=== PATIENT | male | born 1945 | race Caucasian/White ===

== ENCOUNTER 2018-07-18 15:45 | Outpatient (CLI) | payer MEDICARE ==
--- NOTE | 2018-07-18 18:33 | RAD ---
CERVICAL SPINE 4 VIEWS: Date: 07/18/18 HISTORY: Cervical disc disease. COMPARISON: None. FINDINGS: On the open-mouth projection, lateral masses of C1 and C2 articulate appropriate. Intact odontoid pro cess. On the AP projection, there is evidence of facet hypertrophy. There is severe loss of disc space height and osteophyte formation at C4-C5, C5-C6, and C6-C7. Slight reversal of cervical lordosis at C4-C5. The cervicothoracic junction is unremarkable on the swimmer's view. IMPRESSION: Extensive degenerative changes of the cervical spine. MRI may be beneficial. POS: [facility]
== END 2018-07-18 15:46 | disposition home or self-care (01) ==
LOC: BICRAD 15:45
PROVIDERS: ATTEND Family Medicine
DX: M50.90 Cervical disc disorder, unspecified, unspecified cervical region (principal); M47.892 Other spondylosis, cervical region
CPT/HCPCS: 72040

== ENCOUNTER 2018-08-30 14:12 | Outpatient (CLI) | payer MEDICARE ==
--- NOTE | 2018-08-30 15:38 | ULT ---
BLADDER ULTRASOUND: 08/16 03/02 INDICATION: History of urinary frequency. FINDINGS: The prevoid bladder volume of 344.5 mL. Postvoid bladder volume 113.11 mL. No definite ureter jets are demonstrated. The prostate gland is enlarged measuring 5.5 x 4.6 x 4.6 cm. IMPRESSION: 1. Prostate enlargement. 2. Moderate postvoid residual. POS: [facility]
== END 2018-08-30 14:13 | disposition home or self-care (01) ==
LOC: BICULT 14:12
PROVIDERS: ATTEND Family Medicine
DX: N40.1 Benign prostatic hyperplasia with lower urinary tract symptoms (principal); R35.0 Frequency of micturition
CPT/HCPCS: 76856

== ENCOUNTER 2018-12-12 14:28 | Outpatient (CLI) | payer MEDICARE ==
--- NOTE | 2018-12-12 16:51 | MRI ---
MRI RIGHT KNEE PERFORMED WITHOUT CONTRAST ENHANCEMENT: Date: 12/12/18 HISTORY: Right knee pain for last 2 months, limited range of motion. FINDINGS: ACL shows some mild increased signal change, suggesting some degeneration, but no tear identified. Po sterior cruciate ligament is intact. The lateral meniscus shows a radial tear involving posterior horn near the posterior horn body juncti on region. This tear extends from the free edge to the junction of the peripheral and middle thirds o f the meniscus. The tear then proceeds as more of an undersurface tear involving the body of the meni scus. On the medial side, there is a nondisplaced undersurface flap tear involving the body of the meniscus . The free edge of the meniscus is also somewhat blunted, which is probably related to more chronic c hange. The medial and lateral collateral ligaments and iliotibial band regions are normal in appearance. The patellar articular cartilage shows fairly severe articular cartilage loss with some Grade IV rebekah dromalacia changes of the lateral facet. Medial and lateral patellar retinaculum are normal. Quadrice ps and patellar tendons are unremarkable. The posterior articular surface of the lateral femoral condyle shows some edema change, which is near the large radial tear of the posterior horn and at and slightly posterior to this level are some Gra de IV chondromalacia changes or a 4-5 mm segment with complete loss of articular cartilage in this ar ea. Also of incidental note are some cystic changes of the fibular head. IMPRESSION: 1. Large radial tear of the posterior horn of the lateral meniscus. This continues anteriorly as an undersurface tear involving the body, even appears to extend somewhat into the anterior horn. 2. Nondisplaced undersurface flap tear of the junction of the posterior horn and body of the medial meniscus. There is also a truncated appearance to the free edge of the body of the meniscus noted. 3. Tricompartment arthritic change. POS: [facility]
== END 2018-12-12 14:29 | disposition home or self-care (01) ==
LOC: BICMRI 14:28
PROVIDERS: ATTEND Pediatrics Sports Medicine
DX: M25.561 Pain in right knee (principal); M25.461 Effusion, right knee; S83.281A Other tear of lateral meniscus, current injury, right knee, initial encounter; S83.241A Other tear of medial meniscus, current injury, right knee, initial encounter; M17.11 Unilateral primary osteoarthritis, right knee; Z98.890 Other specified postprocedural states

== ENCOUNTER 2023-08-01 11:40 | Observation (INO) | payer MEDICARE ==
[2023-08-01 13:09] LABS: #Basophils 0.1 thou/uL (0.0-0.2); #Eosinphils 0.1 thou/uL (0.0-0.7); #Monocytes 0.7 thou/uL (0.11-0.59); #Neutrophils 6.2 thou/uL (1.40-6.50); %Basophils 0.7 % (0.0-1.0); %Eosinophils 0.7 % (0.0-10.0); %Lymphocytes 18.8 % (21.0-51.0); %Monocytes 7.9 % (0.0-10.0); Hematocrit 39.8 % (42.0-52.0); Hemoglobin 13.4 g/dL (14.0-18.0); Mean Corpuscular HGB CONC 33.7 g/dL (32.0-36.0); Mean Corpuscular Hemoglobin 29.8 pg (27.0-31.0); Mean Corpuscular Volume 88.4 fl (78.0-98.0); Mean Platelet Volume 9.6 fL (7.4-10.4); Platelet Count 350 10x3/uL (130-400); RBC Distribution Width 13.4 % (11.5-14.5); White Blood Cell (WBC) Count 8.8 10x3/uL (4.8-10.8)
[2023-08-01 13:24] LABS: SARS-CoV-2 NAA Rapid Test Not Detected (NotDetected)
[2023-08-01 13:33] LABS: ALT (SGPT) 22 U/L (8-55); AST (SGOT) 21 U/L (5-34); Albumin 4.5 g/dL (3.4-4.8); Alkaline Phosphatase 46 U/L (40-110); Anion Gap 12 mmol/L (10-20); BUN (Urea Nitrogen) 12 mg/dL (8.4-25.7); Bilirubin, Total 0.7 mg/dL (0.2-1.2); Calc. Creatinine Clearance 0 mL/min (70-130); Calcium 9.3 mg/dL (7.8-10.44); Carbon Dioxide 27 mmol/L (23-31); Chloride 101 mmol/L (98-107); Estimated GFR 89; Globulin 2.7 g/dL (2.4-3.5); Glucose 99 mg/dL (83-110); Potassium 3.1 mmol/L (3.5-5.1); Protein, Total 7.2 g/dL (5.8-8.1); Sodium 137 mmol/L (136-145)
[2023-08-01 13:36] LABS: Troponin I Less than 0.010 ng/mL (< 0.028)
[2023-08-01] MEDS ORDERED: Aspirin Chewable 81 MG TAB ONE (15:03)
[2023-08-01] MEDS ORDERED: Nitroglycerin 0.4 MG TAB (25 Tab Bottle) SL PRN (16:24)
[2023-08-01] MEDS ORDERED: Senokot S 8.6-50 MG TAB PO PRN (16:24)
[2023-08-01] MEDS ORDERED: Acetaminophen 650 MG Suppository PR PRN (16:24)
[2023-08-01] MEDS ORDERED: Acetaminophen 325 MG TAB PO PRN (16:24)
[2023-08-01] MEDS ORDERED: Electrolyte Replacement Protocol FS SCH (16:30)
[2023-08-01 16:35] VITALS: BMI 34.7
[2023-08-01] MEDS ORDERED: Potassium Chloride 20 MEQ TAB PO SCH (16:45)
[2023-08-01 16:57] LABS: Troponin I Less than 0.010 ng/mL (< 0.028)
[2023-08-01 19:57] LABS: Troponin I Less than 0.010 ng/mL (< 0.028)
[2023-08-01 20:05] LABS: Magnesium 2.3 mg/dL (1.6-2.6)
[2023-08-01] MEDS: Amoxicillin/Potassium Clav 875 MG TAB PO SCH (23:53)
[2023-08-02 03:57] LABS: #Eosinphils 0.2 thou/uL (0.0-0.7); #Monocytes 0.9 thou/uL (0.11-0.59); #Neutrophils 6.7 thou/uL (1.40-6.50); %Basophils 0.4 % (0.0-1.0); %Eosinophils 1.8 % (0.0-10.0); %Lymphocytes 21.3 % (21.0-51.0); %Monocytes 9.1 % (0.0-10.0); %Neutrophils 66.5 % (42.0-75.0); Hematocrit 36.5 % (42.0-52.0); Hemoglobin 12.2 g/dL (14.0-18.0); Mean Corpuscular HGB CONC 33.4 g/dL (32.0-36.0); Mean Corpuscular Hemoglobin 30.1 pg (27.0-31.0); Mean Corpuscular Volume 90.1 fl (78.0-98.0); Mean Platelet Volume 9.6 fL (7.4-10.4); Platelet Count 318 10x3/uL (130-400); RBC Distribution Width 13.5 % (11.5-14.5); Red Blood Cell (RBC) Count 4.05 mill/uL (4.70-6.10); White Blood Cell (WBC) Count 10.1 10x3/uL (4.8-10.8)
[2023-08-02 04:13] LABS: Anion Gap 12 mmol/L (10-20); BUN (Urea Nitrogen) 12 mg/dL (8.4-25.7); Calc. Creatinine Clearance 119 mL/min (70-130); Calcium 8.9 mg/dL (7.8-10.44); Carbon Dioxide 27 mmol/L (23-31); Chloride 101 mmol/L (98-107); Estimated GFR 89; Glucose 97 mg/dL (83-110); Magnesium 2.4 mg/dL (1.6-2.6); Potassium 3.2 mmol/L (3.5-5.1); Sodium 137 mmol/L (136-145)
[2023-08-02] MEDS ORDERED: Potassium Chloride 20 MEQ TAB PO SCH (08:00)
[2023-08-02] MEDS ORDERED: Atorvastatin Calcium 20 MG TAB PO SCH (09:00)
[2023-08-02] MEDS: Amoxicillin/Potassium Clav 875 MG TAB PO SCH (09:00)
[2023-08-02] MEDS ORDERED: Tamsulosin HCl 0.4 MG CAP PO SCH (09:00)
[2023-08-02] MEDS ORDERED: Aspirin 81 mg Enteric Coated Tablet PO SCH (09:00)
[2023-08-02] MEDS ORDERED: Regadenoson 0.4 MG/5 ML SYRINGE ONE (10:16)
[2023-08-02 13:46] VITALS: BP 137/80; TEMP 98.1
== END 2023-08-02 15:15 | disposition home or self-care (01) ==
LOC: ERS 11:40 → INTOOBSV 14:53 → ERHOLD 14:53 → 2NO 20:25
PROVIDERS: ADMIT Internal Medicine; ATTEND Hospitalist
DX: R07.9 Chest pain, unspecified (principal); I08.1 Rheumatic disorders of both mitral and tricuspid valves; I10 Essential (primary) hypertension; G47.33 Obstructive sleep apnea (adult) (pediatric); E78.5 Hyperlipidemia, unspecified; E87.6 Hypokalemia; R13.10 Dysphagia, unspecified; J32.9 Chronic sinusitis, unspecified; Z79.899 Other long term (current) drug therapy; Z90.89 Acquired absence of other organs; Z90.49 Acquired absence of other specified parts of digestive tract; Z87.891 Personal history of nicotine dependence; Z20.822 Contact with and (suspected) exposure to COVID-19
CPT/HCPCS: 0240U; 71045; 78452; 80048; 80053; 83735 ×2; 83880; 84443; 84484 ×2; 85025 ×2; 93005; 93017; 93306; 94660; 96372; 99284; A9500; G0378 ×3; J2785; 36415; J1650

== ENCOUNTER 2023-08-10 10:26 | Outpatient (CLI) | payer MEDICARE | END 2023-08-10 10:27 | disposition home or self-care (01) | LOC: RAD 10:26 | PROVIDERS: ATTEND Specialist | DX: I69.891 Dysphagia following other cerebrovascular disease (principal); I69.091 Dysphagia following nontraumatic subarachnoid hemorrhage; R13.12 Dysphagia, oropharyngeal phase; R63.30 Feeding difficulties, unspecified; I67.89 Other cerebrovascular disease; K21.9 Gastro-esophageal reflux disease without esophagitis | CPT/HCPCS: 74230 ==

== ENCOUNTER 2024-04-24 11:15 | Outpatient (CLI) | payer MEDICARE | END 2024-04-24 11:16 | disposition home or self-care (01) | LOC: SCSMRI 11:15 | PROVIDERS: ATTEND Orthopaedic Surgery | DX: M47.22 Other spondylosis with radiculopathy, cervical region (principal); M54.50 Low back pain, unspecified; M51.36 Other intervertebral disc degeneration, lumbar region; M51.37 Other intervertebral disc degeneration, lumbosacral region; M48.061 Spinal stenosis, lumbar region without neurogenic claudication | CPT/HCPCS: 70210; 72141; 72148 ==